=== PATIENT | female | born 1955 | race Caucasian/White ===

== ENCOUNTER 2022-02-01 11:40 | Emergency (ER) | payer OTHER ==
[2022-02-01 11:44] VITALS: BP 146/73; PULSE 87; TEMP 99.2; BMI 27.1
[2022-02-01] MEDS ORDERED: predniSONE 20 MG TABLET (UD) PO ONE (12:27)
[2022-02-01] MEDS ORDERED: predniSONE 20 MG TABLET (UD) ONE (12:30)
== END 2022-02-01 13:30 | disposition home or self-care (01) ==
LOC: FER 11:40
DX: L29.9 Pruritus, unspecified (principal)
CPT/HCPCS: 93005; 99283-25